=== PATIENT | male | born 1985 | race Caucasian/White ===

== ENCOUNTER 2021-07-23 07:17 | Emergency (ER) | payer SELFPAY ==
[~2021-07-23] VITALS: Ht 180.3 cm; Wt 69.9 kg
[2021-07-23 07:18] VITALS: BP 119/71
--- NOTE | 2021-07-23 07:30 | NUR ---
Patient discharged to law enforcment in stable condition. Written and verbal after care instructions given. Patient verbalizes understanding of instruction. Patient medically cleared for booking.
== END 2021-07-23 07:46 ==
LOC: ER 07:34
DX: S01.81XA Laceration without foreign body of other part of head, initial encounter (principal); W19.XXXA Unspecified fall, initial encounter; Y93.89 Activity, other specified; Y92.89 Other specified places as the place of occurrence of the external cause; Y99.8 Other external cause status